=== PATIENT | female | born 1990 | race Two or more races ===

== ENCOUNTER 2019-02-14 15:38 | Emergency (ER) | payer OTHER ==
[2019-02-14 15:53] VITALS: BP 134/93
--- NOTE | 2019-02-14 16:54 | XRAY Report ---
Reason: Left ankle injury Procedure Date: 02/14/2019 Accession Number: [id number] / [id number] Procedure: XR - Ankle 3 View LT CPT Code: FULL RESULT: EXAM: LEFT ANKLE RADIOGRAPHY EXAM DATE: 02/14/2019 04:30 PM. CLINICAL HISTORY: Left ankle injury. Medial ankle pain after ground-level fall. COMPARISON: None. TECHNIQUE: 3 views. FINDINGS: Bones: Normal. No fractures or bone lesions. Joints: Normal. No effusion. No subluxations. The ankle mortise is normally aligned. Soft Tissues: Medial ankle soft tissue swelling. IMPRESSION: 1. No fracture demonstrated. 2. Medial ankle soft tissue swelling. [facility]
--- NOTE | 2019-02-14 16:59 | ED Physician Documentation ---
PD HPI LOWER EXT INJURY - Stated complaint Stated Complaint: L ANKLE INJ - Chief complaint Chief Complaint: Ext Problem - History obtained from History obtained from: Patient - History of Present Illness PD HPI LOW EXT INJURY LOCATION: Left Type of injury: Fall, Twist Where injury occurred: Work Timing - onset: How many months ago (1) Timing - duration: Months (1) Timing - details: Abrupt onset Worsened by: Palpating Associated symptoms: Swelling (Resolved). No: Weakness, Numbness, Tingling Similar symptoms before: Has not had sx before Recently seen: Not recently seen - Additional information Additional information: Is a 29-year-old woman who presents with complaints that a month ago she was walking through the parking lot at work when she twisted her left ankle inversion injury and fell down landing on the right knee. She is had chronic knee "dislocations" in the left knee has been bothering her more now that she injured the left ankle. The ankle swelled pretty significantly but that has improved but she still having point tenderness just behind the medial malleolus. 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 She denies prior treatment for any ankle injury or seeing orthopedist regarding her knee. She has not been wearing any support or taking any medications for the pain. Denies numbness or tingling down into the toes. The right knee is still a little tender to push on it. Review of Systems Musculoskeletal: reports: Joint pain, Joint swelling (Resolved) Neurologic: denies: Numbness PD PAST MEDICAL HISTORY - Past Medical History Past Medical History: No - Present Medications Home Medications: Ambulatory Orders Medication Instructions Recorded Confirmed No Known Home Medications 02/14/19 02/14/19 - Allergies Allergies/Adverse Reactions: Allergies Allergy/AdvReac Type Severity Reaction Status Date / Time No Known Drug Allergies Allergy Verified 02/14/19 15:53 - Social History Does the pt smoke?: No Smoking Status: Never smoker PD ED PE NORMAL - Vitals Vital signs reviewed: Yes - General General: Alert and oriented X 3, No acute distress, Well developed/nourished - HEENT HEENT: Atraumatic - Derm Derm: Normal color, Warm and dry - Extremities Extremities: No deformity, Normal ROM s pain, No edema, Other (The left knee has no effusion and is not painful over the fibular head. There is no swelling of the left ankle although she complains of pain with palpation on the medial malleolus. No pain over the lateral malleolus or through the foot. She is a 2+ dorsalis pedis pulse, is able to wiggle her toes and sensation is intact to light touch in the foot.) - Neuro Neuro: Alert and oriented X 3, No motor deficit, No sensory deficit Results - Vitals Vitals: Vital Signs - 24 hr 02/14/19 15:50 Temperature 36.4 C L Heart Rate 72 Respiratory 16 Rate Blood Pressure 134/93 H O2 Saturation 100 Oxygen O2 Source Room air PD MEDICAL DECISION MAKING - ED course Complexity details: reviewed results, d/w patient ED course: X-ray of the left ankle was negative for fracture. Results were discussed. I recommended range of motion exercises and doubt she would benefit from any splinting at this time as at some month past the original accident. She is released to full duty and follow-up through her [facility] provider if she continues to have pain over another form weeks or other problems arise. Departure - Departure Disposition: 01 Home, Self Care Clinical Impression: Sprain of ankle Qualifiers: Encounter type: initial encounter Involved ligament of ankle: unspecified ligament Laterality: left Qualified Code(s): S93.402A - Sprain of unspecified ligament of left ankle, initial encounter Instructions: ED Sprain Ankle W X Ray Follow-Up: [facility] [Provider Group] Comments: May take ibuprofen up to 4 tablets every 8 hours with food for pain. Range of motion exercises as discussed 2-3 times a day. Follow-up with your [facility] provider if you continue to have pain for another month or if symptoms are worsening you feel that the ankle is shifting or clicking.
== END 2019-02-14 17:13 | disposition home or self-care (01) ==
LOC: ED 15:38
DX: S93.402A Sprain of unspecified ligament of left ankle, initial encounter (principal); M25.561 Pain in right knee; X50.1XXA Overexertion from prolonged static or awkward postures, initial encounter; W18.39XA Other fall on same level, initial encounter; Y93.01 Activity, walking, marching and hiking; Y92.481 Parking lot as the place of occurrence of the external cause; Y99.0 Civilian activity done for income or pay
CPT/HCPCS: 1040M; 73610; 99282; 99283

== ENCOUNTER 2019-05-30 11:17 | Outpatient (CLI) | payer OTHER ==
--- NOTE | 2019-05-31 01:01 | Ultrasound Report ---
Reason: IUD SURVEILLANCE Procedure Date: 05/30/2019 Accession Number: [id number] / [id number] Procedure: US - Transvaginal CPT Code: Final Report FULL RESULT: EXAM: PELVIC ULTRASOUND EXAM DATE: 05/30/2019 11:57 AM. CLINICAL HISTORY: IUD surveillance. Unable to visualize IUD strings. COMPARISON: None. TECHNIQUE: Realtime transvaginal pelvic scan performed to identify the uterus and adnexa and as an overview of other pelvic structures with static image documentation. FINDINGS: Uterus: 7.1 x 3.3 x 4.5 cm, volume 55.4 cc. Retroverted position. Normal overall size and echotexture. Masses: None. Endometrium: [address]. Positioning appears satisfactory. Cervix: Nabothian cysts. Otherwise unremarkable. Right Ovary: 2.5 x 2.0 x 2.4 cm, volume 6.2 cc. Dominant follicle measuring 1.6 cm. Normal echotexture and blood flow. Left Ovary: 1.7 x 1.8 x 1.7 cm, volume 2.7 cc. Normal echotexture and blood flow. Free Fluid: None. Other: None. IMPRESSION: 1. Intrauterine device in satisfactory position. 2. Unremarkable pelvic ultrasound. [facility]
== END 2019-05-30 11:18 | disposition home or self-care (01) ==
LOC: DI 11:17
PROVIDERS: ATTEND Obstetrics & Gynecology
DX: Z30.431 Encounter for routine checking of intrauterine contraceptive device (principal)
CPT/HCPCS: 76830